=== PATIENT | male | born 1965 | race African-American/Black ===

== ENCOUNTER 2021-08-12 06:07 | Day surgery (SDC) | payer OTHER ==
[~2021-08-12] VITALS: Ht 180.3 cm; Wt 74.8 kg
[2021-08-12 07:56] VITALS: BP 138/81
== END 2021-08-12 08:05 | DRG 395 ==
LOC: ENDO 06:07 → ORM 07:00 → ENDO 08:05
PROVIDERS: ATTEND Surgery
PROC: 0DBL8ZX Excision of Transverse Colon, Via Natural or Artificial Opening Endoscopic, Diagnostic (ICD-10-PCS; principal; 2021-08-12)
DX: D12.3 Benign neoplasm of transverse colon (principal); K64.8 Other hemorrhoids